=== PATIENT | female | born 1995 | race Caucasian/White ===

== ENCOUNTER 2020-09-18 05:45 | Day surgery (SDC) | payer OTHER ==
[~2020-09-18] VITALS: Ht 190.5 cm; Wt 159.0 kg
--- NOTE | ~2020-09-18 | OR ---
[facility] [address] [place], [place] [address] Draft DATE OF OPERATION: 09/18/2020 SURGEON: Hilario Dickey MD PREOPERATIVE DIAGNOSES: Massive tonsillar hypertrophy, sleep disturbance, asymmetry of tonsils. POSTOPERATIVE DIAGNOSES: Massive tonsillar hypertrophy, sleep disturbance, asymmetry of tonsils. PROCEDURE: Tonsillectomy for biopsy. INDICATIONS: This 24-year-old female had her adenoids removed by myself 10 or 15 years ago. She had some tonsillar hypertrophy, but in the last few months, they have grown massively large without any response to antibiotics and the right side was larger than the left with total obstruction of pharynx. Sleep apnea was not documented, but suspected. Because of the asymmetry, the massive obstruction relatively sudden onset, the above procedure was indicated. DESCRIPTION OF PROCEDURE: The patient was placed in the supine position, had an orotracheal intubation, was placed under general anesthesia. McIvor mouth gag was inserted and exposing this time the left side. Both tonsils were pressed tightly together even with the mouth gag in. The left tonsil was grasped with tenaculum, it was dissected from the pharyngeal musculature with a Bovie cautery unit . A subcapsular and bloodless plane were achieved allowing adequate time for thermal relaxation with short bursts going of different areas until the tonsil was removed. A Bismuth was placed into the tonsillar fossa to help with postop hemostasis and about 2 mL of 1% lidocaine, 1:200,000 epinephrine were injected in the tonsillar fossa. The mouth gag was entirely removed allowing the tissues to reperfuse for 60 seconds and was reinserted this time exposing the right tonsil, which was even larger than left. It was removed in the same fashion. More Bismuth and another 1.5 mL of lidocaine placed in there and completed the procedure. There were no complications. The patient went to the recovery room in good condition. ESTIMATED BLOOD LOSS: 1 or 2 mL. PATIENT NAME: JAS COLONLYN OPERATIVE REPORT DATE OF : [birth year] REPORT #: [id number] PHYSICIAN: HILARIO DICKEY MD PCP: KASSI OHARA REPORT IS CONFIDENTIAL AND NOT TO BE RELEASED WITHOUT AUTHORIZATION [address] [address] [place] Hilario Dickey MD SLN/MODL /[id number] Copies: ~ PATIENT NAME: ISAIAHJAS BEST OPERATIVE REPORT DATE OF : [birth year] REPORT #: [id number] PHYSICIAN: HILARIO DICKEY MD PCP: KASSI OHARA REPORT IS CONFIDENTIAL AND NOT TO BE RELEASED WITHOUT AUTHORIZATION
[~2020-09-18 05:45] MED LIST: COREG12.5 MG PO; COZAAR50 MG PO; CYMBALTA60 MG PO; WELLBUTRIN XL300 MG PO
--- NOTE | 2020-09-18 08:43 | NUR ---
09/18/20 0842 Debra Traore 0819- PT TO PACU IN SF POSITION. EYES OPEN. DROWSY BUT FOLLOWS COMMANDS. BREATHING EASY AND UNLABORED. SPO2 100% ON ROOM AIR. PT REPORTING NAUSEA. HOMEMAKING REHABILITATION CONSULTANT AT BEDSIDE. 0825- PT CONTINUES TO REPORT NAUSEA. VSS. BREATHING EASY AND UNLABORED. VERBAL ORDER RECEIVED FROM HOMEMAKING REHABILITATION CONSULTANT TO GIVE PHERNERGAN. BREATHING EASY AND UNLABORED. SPO2 >95% IV FLUIDS RUNNING. IV PATENT. 0832- VSS. BREATHING EASY AND UNLABORED. HOB ELEVATED. PT CONTINUES TO REPORT NAUSEA. COOL AIR AND WASH CLOTH PROVIDED. WILL CONTINUE TO MONITOR. 0840- PT ABLE TO SLEEP INTERMITTANTLY WITH PERIODS OF APNEA. SPO2 TO UPPER 80S WHILE SLEEPING. 2 L NC APPLIED.
--- NOTE | 2020-09-18 09:19 | NUR ---
LE 0910: PT ARRIVES ON UNIT FROM PACU VIA STRETCHER. REPORT RECEIVED FROM STAGECRAFT TEACHER AND CARE ASSUMED BY THIS AUTHOR. PT DROWSY AT THIS TIME BUT AROUSABLE. VSS, SCDS IN PLACE. PT WISHES TO SLEEP, LIGHTS DIMMED. CALL LIGHT WITHIN REACH. NO NEEDS VOICED AT THIS TIME. MOTHER ATTENTIVE AT THE BEDSIDE
--- NOTE | 2020-09-18 10:28 | NUR ---
LE 1015: PT ALERT AND ORIENTED, VSS. DENIES NAUSEA AND TOLERATES SIPS OF ICE WATER. UP TO BR WITH STANDBY ASSIST FROM THIS RN. SUCCESSFUL FIRST POST OP VOID. BACK TO STRETCHER. DENIES DIZZINESS AND SOB. ICE PACK PROVIDED FOR THROAT REQUESTED. MOTHER ATTENTIVE AT THE BEDSIDE. CALL LIGHT WITHIN REACH, NO NEEDS VOICED
--- NOTE | 2020-09-18 11:06 | NUR ---
PATIENT PUSHES HER CALL LIGHT AND ASKS FOR MORE ICE IN HER WATER AND FOR A POPSICLE. THESE ARE GIVEN. SHE DENIES ADDITIONAL NEEDS AT THIS TIME. HER FAMILY REMAINS AT HER BEDSIDE.
--- NOTE | 2020-09-18 11:19 | NUR ---
LE 1010: PT SITS UP IN BED AND EATS POPSICLE. ALEC WELL. VSS. NO NEEDS VOICED AT THIS TIME. CALL LIGHT WITHIN REACH
--- NOTE | 2020-09-18 11:47 | NUR ---
LE 1140: D/C INSTRUCTIONS PROVIDED AND DISCUSSED ORDERED. PT VERBALIZES UNDERSTANDING AT THIS TIME. IV D/C'D WITH CATH TIP IN PLACE AND PRESSURE APPLIED TO SITE. PT WHEELED OFF OF UNIT BY THIS RN. TRANSFERS INTO VEHICLE INDEPENDENTLY. RESP EVEN AND UNLABORED. NO PHYSICAL S/S OF DISTRESS AT THIS TIME
--- NOTE | 2020-09-18 13:49 | NUR ---
PT ALERT, ORIENTED AND SUPPORTED BY HER MOTHER JARET. ALL QUESTIONS ASKED ANSWERED, DR VALDEZ CAME IN FOR A BRIEF MOMENT. OR STAFF WAITING, GAVE BLESSING AND ENCOURAGEMENT. WILL FOLLOW NEEDED
--- NOTE | 2020-09-18 15:29 | EKG ---
[facility] [address] [facility] [place], [place] [address] Signed Normal sinus rhythm with sinus arrhythmia Normal ECG No previous ECGs available Confirmed by BOB THOMAS DO ([id number]) on 09/18/2020 3:28:50 PM Electronically Signed By: BOB THOMAS DO 09/18/20 1529 PATIENT NAME: JAS COLON Electrocardiogram DATE OF : [birth year] PHYSICIAN: BOB THOMAS DO REPORT #: [id number] REPORT IS CONFIDENTIAL AND NOT TO BE RELEASED WITHOUT AUTHORIZATION
--- NOTE | 2020-09-22 11:42 | PATH ---
[facility] [address] [place], [place] [address] Signed SPECIMEN(S): A LEFT TONSIL SPECIMEN(S): B RIGHT TONSIL SPECIMEN SOURCE: A. LEFT TONSIL B. RIGHT TONSIL CLINICAL HISTORY: Pre: Chronic tonsillitis, sleep disorder. Post: Tonsillectomy. FINAL PATHOLOGIC DIAGNOSIS: A. Tonsil, left, tonsillectomy: - Reactive follicular lymphoid hyperplasia. B. Tonsil, right, tonsillectomy: - Reactive follicular lymphoid hyperplasia. NAL:cml:C2NR MICROSCOPIC EXAMINATION: Histologic sections of all submitted blocks are examined by light microscopy. These findings, together with the gross examination, support the pathologic diagnosis. GROSS DESCRIPTION: Two specimens are received in two containers, labeled "HW." A. The specimen, labeled "HW, left tonsil," is received in formalin and consists of a 4.0 x 2.8 x 1.7 cm palatine tonsil. The mucosal surface is pink-vazquez and smooth with areas of folds. Cut sections reveal a pink homogeneous cut surface, with the usual crypt-like architecture. The specimen is inked. It Programmer sections are submitted in cassette (A1). B. The specimen, labeled "HW, right tonsil," is received in formalin and consists of a 4.5 x 2.9 x 2.2 cm palatine tonsil. The mucosal surface is pink-vazquez and smooth with areas of folds. Cut sections reveal a pink homogeneous cut surface, with the usual crypt-like architecture. It Programmer sections are submitted in cassette (A1). JS (under the direct supervision of a pathologist) The Gross Description was prepared using a voice recognition system. The report was reviewed for accuracy; however, sound-alike word errors, addition and/or deletions may occur. If there is any question about this report, please contact Client Services. PATIENT NAME: JAS COLON PATHOLOGY DATE OF : [birth year] REPORT #: [id number] PHYSICIAN: MARIO MALDONADO PCP: KASSI OHARA REPORT IS CONFIDENTIAL AND NOT TO BE RELEASED WITHOUT AUTHORIZATION [facility] [address] [place] [address] Signed PERFORMING LABORATORY: The technical component was performed by [employer] [facility], [address] [place] [address] (Pressure Supervisor: Chrissie Gatica MD; CLIA# [id number]).Professional interpretation was performed by [employer] [facility], [address] [address] (CLIA# [id number]). Diagnostician: Cheryl Lei MD Pathologist Electronically Signed 09/22/2020 Copies: ~ PATIENT NAME: JAS COLON PATHOLOGY DATE OF : [birth year] REPORT #: [id number] PHYSICIAN: MARIO PATHOLOGY PCP: KASSI OHARA REPORT IS CONFIDENTIAL AND NOT TO BE RELEASED WITHOUT AUTHORIZATION
== END 2020-09-18 11:40 | disposition home or self-care (01) ==
LOC: DS 05:45
PROVIDERS: ATTEND Otolaryngology
PROC: 0CTPXZZ Resection of Tonsils, External Approach (ICD-10-PCS; principal; 2020-09-18 06:45)
DX: J35.1 Hypertrophy of tonsils (principal); E11.9 Type 2 diabetes mellitus without complications; I10 Essential (primary) hypertension; Z88.2 Allergy status to sulfonamides; Z98.890 Other specified postprocedural states; G47.9 Sleep disorder, unspecified
CPT/HCPCS: 00170; 93005; 93010; J0330; J1100; J1790; J2001; J2250; J2405; J2550; J2704; J7121